=== PATIENT | female | born 1995 | race Caucasian/White ===

== ENCOUNTER 2016-09-17 19:51 | Emergency (ER) | payer OTHER ==
[~2016-09-17] VITALS: Ht 162.6 cm; Wt 90.9 kg
[~2016-09-17 19:51] MED LIST: PREN1TAB26 PO
[2016-09-17] MEDS ORDERED: KETOROLAC TROMETHAMINE 60 MG/2 ML VIAL IM ONE (22:45)
[2016-09-17 22:49] VITALS: BP 134/92
== END 2016-09-17 23:09 | disposition home or self-care (01) ==
LOC: EMS 19:53
DX: S93.401A Sprain of unspecified ligament of right ankle, initial encounter (principal); Z88.0 Allergy status to penicillin; W18.30XA Fall on same level, unspecified, initial encounter; Y93.01 Activity, walking, marching and hiking; Y92.89 Other specified places as the place of occurrence of the external cause; Y99.8 Other external cause status
CPT/HCPCS: 73610; 84703; 96372; 99285; J1885

== ENCOUNTER 2020-12-24 23:33 | Emergency (ER) | payer SELFPAY ==
[~2020-12-24] VITALS: Ht 162.6 cm; Wt 122.7 kg
[2020-12-25] MEDS ORDERED: KETOROLAC TROMETHAMINE 30 MG/ML VIAL IM ONE (01:00)
[2020-12-25] MEDS ORDERED: LIDOCAINE 5% TRANSDERMAL PATCH TD ONE (01:00)
[2020-12-25 01:16] LABS: APPEARANCE,URINE CLOUDY (CLEAR); BILIRUBIN,URINE NEGATIVE (NEGATIVE); GLUCOSE, URINE (UA) NEGATIVE (NEGATIVE); KETONES,URINE NEGATIVE (NEGATIVE); LEUKOCYTE ESTERASE ,URINE NEGATIVE (NEGATIVE); NITRATE,URINE NEGATIVE (NEGATIVE); OCCULT BLOOD,URINE NEGATIVE (NEGATIVE); PROTEIN,URINE NEGATIVE (NEGATIVE); UROBILINOGEN,URINE 0.2 mg/dL (<=1.0)
[2020-12-25 03:00] VITALS: BP 129/89
[2020-12-25] MEDS ORDERED: ETON68IM3 SD (15:51)
== END 2020-12-25 03:39 | disposition home or self-care (01) ==
LOC: EMS 23:34
DX: M54.6 Pain in thoracic spine (principal); R07.89 Other chest pain; Z88.0 Allergy status to penicillin
CPT/HCPCS: 71045; 81003; 81025; 93005; 96372; 99285; J1885

== ENCOUNTER 2020-12-25 15:43 | Emergency (ER) | payer SELFPAY ==
[~2020-12-25] VITALS: Ht 162.6 cm; Wt 122.7 kg
[2020-12-25] MEDS ORDERED: ETON68IM3 SD (15:51)
[2020-12-25] MEDS ORDERED: METHOCARBAMOL 100 MG/ML 10 ML VIAL IVP ONE (17:15)
[2020-12-25 17:28] LABS: BASOPHILS % (AUTO) 0.3 % (0.0-2.0); HEMATOCRIT 37.6 % (36-46); HEMOGLOBIN 12.3 g/dL (12.0-16.0); LYMPHOCYTES # (AUTO) 2.1 K/uL (1.0-4.8); MEAN CORPUSCULAR HEMOGLOBIN 27.1 pg (26.0-34.0); MEAN CORPUSCULAR HGB CONC 32.8 G/dL (31.0-37.0); MEAN CORPUSCULAR VOLUME 83 fL (80-100); MONOCYTES # (AUTO) 0.7 K/uL (0.1-1.0); MONOCYTES % (AUTO) 5.6 % (2.0-9.0); NEUTROPHILS # (AUTO) 10.2 K/uL (1.8-7.7); NEUTROPHILS % (AUTO) 77.1 % (40.0-70.0); PLATELET COUNT (AUTO) 306 K/uL (150-450); RED BLOOD CELL COUNT(AUTO) 4.56 MIL/uL (4.00-5.20)
[2020-12-25 17:35] LABS: ANION GAP 14 mmol/L (8-16); CALCIUM, TOTAL 8.4 mg/dL (8.8-10.5); CARBON DIOXIDE 22 mmol/L (22-29); CHLORIDE 106 mmol/L (98-107); CREATININE 0.62 mg/dL (0.60-1.30); GLOMERULAR FILTR. RATE CALC > 60 mL/min (>60); GLUCOSE,RANDOM 101 mg/dL (70-110); POTASSIUM 4.1 mmol/L (3.5-5.1); SODIUM SERUM 142 mmol/L (136-145); UREA NITROGEN, BLOOD 12 mg/dL (7-18)
[2020-12-25 17:40] LABS: ALANINE AMINOTRANSFERASE 40 U/L (12-78); ALBUMIN 3.6 g/dL (3.4-5.0); ALKALINE PHOSPHATASE 89 U/L (46-116); ASPARTATE AMINOTRANSFERASE 14 U/L (15-37); BILIRUBIN,TOTAL 0.2 mg/dL (0.1-1.0); LIPASE 24 U/L (73-393); TOTAL PROTEIN, SERUM 6.7 g/dL (6.4-8.2)
[2020-12-25 20:00] VITALS: BP 129/76
== END 2020-12-25 20:50 | disposition home or self-care (01) ==
LOC: EMS 15:43
DX: S39.012A Strain of muscle, fascia and tendon of lower back, initial encounter (principal); S16.1XXA Strain of muscle, fascia and tendon at neck level, initial encounter; Z88.0 Allergy status to penicillin; X58.XXXA Exposure to other specified factors, initial encounter; Y93.89 Activity, other specified; Y92.89 Other specified places as the place of occurrence of the external cause; Y99.8 Other external cause status
CPT/HCPCS: 36415; 72070; 72100; 80053; 83690; 85025; 96374; 99284; J2800